=== PATIENT | female | born 1985 | race Caucasian/White ===

== ENCOUNTER 2017-02-17 15:12 | Observation (INO) | payer OTHER ==
--- NOTE | 2017-02-17 15:24 | EDPHY ---
HPI/HX/ROS/PE/MDM Narrative: CHIEF COMPLAINT: Shortness of breath, lightheadedness, nausea HISTORY OF PRESENT ILLNESS: The patient is a 32-year-old female, brought in by EMS, presenting with lightheadedness and nausea that started while biking today. The patient started biking around 12 p.m. She stopped under some shade because she was tired after pedaling up a hill. Immediately after stopping she developed shortness of breath, nausea, and lightheadedness. Her shortness of breath felt similar to previous PE. A assistant auto center manager happened to drive by and helped her. She received 3/4 L of fluids and her symptoms improved. The patient is on Warfarin for Factor 5 Leiden, she forgot to take her 20mg dose this morning. She states she felt fine before the bike ride. She ate eggs and has been hydrating sufficiently. Vitals in the field BP: 106/68, Pulse: 80, BGL: 165. No fever, chills, chest pain, shortness of breath, palpitations, vomiting, diarrhea, urinary complaints, headache. REVIEW OF SYSTEMS: Aside from elements discussed in the HPI, a comprehensive 10-point review of systems was reviewed and is negative. PAST MEDICAL HISTORY: Factor 5 Leiden, PE, DVT PS: Cholecystectomy SOCIAL HISTORY: Single. Lives in [place]. VITAL SIGNS: Reviewed by me GENERAL: Well-developed, well-nourished, resting comfortably in no respiratory distress. HEENT: Atraumatic. Eyes: No icterus, no injection. Mouth: slightly dry mucous membranes. No erythema or lesions. Neck: supple with no adenopathy. LUNGS: Clear to auscultation bilaterally, no wheezes, rhonchi or rales. CARDIAC: Regular rate and rhythm, no rubs, murmurs or gallops. ABDOMEN: Soft, nontender, nondistended, bowel sounds normal. BACK: No CVA tenderness. EXTREMITIES: No trauma. No edema. Range of motion is normal throughout. Multiple sites of ecchymosis bilaterally. NEURO: Alert and oriented, grossly nonfocal. SKIN: Cold and clammy. PSYCHIATRIC: Normal mentation, no agitation. Portions of this note were transcribed by a hospital medical assistant. I personally performed a history, physical exam, medical decision making, and confirmed accuracy of information the transcribed note. ED Course: Patient presents brought in by EMS with heat exhaustion from biking today. Patient's symptoms have resolved. Plan to check electrolytes, troponin, and urinalysis. UA is negative. Lab work is otherwise unremarkable. PT/INR is not therapeutic, patient states she did not take her 20mg dose of Warfarin this morning. Creatinine is 1.1. Troponin is .032, plan to consult cardiology. 12-LEAD EKG: Please see the full report in [facility]. My interpretation: Normal sinus rhythm. 1622: I spoke to Dr. Jean, Cardiology, he recommends admission for serial troponins. 1625: I discussed findings with the patient, she agrees with plan for admission. 1640: I spoke to the hospitalist, Dr. Pinto, who will admit the patient. MDM: Differential diagnosis for the patient's symptom complex was considered including but not limited to heat exhaustion, electrolyte abnormalities, cardiac causes, dehydration, pulmonary emboli, pulmonary edema, and cardiac causes. - Data Points Laboratory Results: Laboratory Results 02/17/17 15:20 02/17/17 15:20 02/17/17 02/17/17 02/17/17 15:20 15:20 15:20 WBC RBC Hgb Hct MCV MCH MCHC RDW Plt Count MPV Neut % (Auto) Lymph % (Auto) [place] % (Auto) Eos % (Auto) Baso % (Auto) Nucleat RBC Rel Count Absolute Neuts (auto) Absolute Lymphs (auto) Absolute Monos (auto) Absolute Eos (auto) Absolute Basos (auto) Absolute Nucleated RBC Immature Gran % Immature Gran # PT INR Sodium 143 mEq/L mEq/L (134-144) Potassium 3.8 mEq/L mEq/L (3.5-5.2) Chloride 108 mEq/L mEq/L (97-110) Carbon Dioxide 18 mEq/l L mEq/l (22-31) Anion Gap 17 mEq/L H mEq/L (8-16) BUN 18 mg/dL mg/dL (7-23) Creatinine 1.1 mg/dL H mg/dL (0.6-1.0) Estimated GFR 57 Glucose 123 mg/dL H mg/dL (70-100) Calcium 10.8 mg/dL H mg/dL (8.5-10.4) Phosphorus 4.3 mg/dL mg/dL (2.5-4.5) Creatine Kinase 128 IU/L IU/L (0-156) Troponin I 0.032 ng/mL ng/mL (0-0.034) Lipase 84.0 IU/L IU/L (23-300) Beta HCG, Qual NEGATIVE Urine Color YELLOW Urine Appearance CLEAR Urine pH 7.0 (5.0-7.5) Ur Specific [place] 1.020 (1.002-1.030) Urine Protein NEGATIVE (NEGATIVE) Urine Ketones TRACE H (NEGATIVE) Urine Blood NEGATIVE (NEGATIVE) Urine Nitrate NEGATIVE (NEGATIVE) Urine Bilirubin NEGATIVE (NEGATIVE) Urine Urobilinogen NEGATIVE EU EU (0.2-1.0) Ur Leukocyte Esterase NEGATIVE (NEGATIVE) Urine RBC 1-3 /hpf /hpf (0-3) Urine WBC 1-3 /hpf /hpf (0-3) Ur Epithelial Cells TRACE /lpf /lpf (NONE-1+) Hyaline Casts 25-50 /lpf H /lpf (0-1) Urine Mucus 1+ /lpf /lpf (NONE-1+) Urine Glucose NEGATIVE (NEGATIVE) 02/17/17 02/17/17 15:20 15:20 WBC 7.48 10^3/uL 10^3/uL (3.80-9.50) RBC 4.92 10^6/uL 10^6/uL (4.18-5.33) Hgb 15.7 g/dL g/dL (12.6-16.3) Hct 45.8 % % (38.0-47.0) MCV 93.1 fL fL (81.5-99.8) MCH 31.9 pg pg (27.9-34.1) MCHC 34.3 g/dL g/dL (32.4-36.7) RDW 12.9 % % (11.5-15.2) Plt Count 316 10^3/uL 10^3/uL (150-400) MPV 10.3 fL fL (8.7-11.7) Neut % (Auto) 60.9 % % (39.3-74.2) Lymph % (Auto) 28.2 % % (15.0-45.0) [place] % (Auto) 7.0 % % (4.5-13.0) Eos % (Auto) 2.8 % % (0.6-7.6) Baso % (Auto) 0.8 % % (0.3-1.7) Nucleat RBC Rel Count 0.0 % % (0.0-0.2) Absolute Neuts (auto) 4.56 10^3/uL 10^3/uL (1.70-6.50) Absolute Lymphs (auto) 2.11 10^3/uL 10^3/uL (1.00-3.00) Absolute Monos (auto) 0.52 10^3/uL 10^3/uL (0.30-0.80) Absolute Eos (auto) 0.21 10^3/uL 10^3/uL (0.03-0.40) Absolute Basos (auto) 0.06 10^3/uL 10^3/uL (0.02-0.10) Absolute Nucleated RBC 0.00 10^3/uL 10^3/uL (0-0.01) Immature Gran % 0.3 % % (0.0-1.1) Immature Gran # 0.02 10^3/uL 10^3/uL (0.00-0.10) PT 13.5 SEC SEC (12.0-15.0) INR 1.04 (0.83-1.16) Sodium Potassium Chloride Carbon Dioxide Anion Gap BUN Creatinine Estimated GFR Glucose Calcium Phosphorus Creatine Kinase Troponin I Lipase Beta HCG, Qual Urine Color Urine Appearance Urine pH Ur Specific [place] Urine Protein Urine Ketones Urine Blood Urine Nitrate Urine Bilirubin Urine Urobilinogen Ur Leukocyte Esterase Urine RBC Urine WBC Ur Epithelial Cells Hyaline Casts Urine Mucus Urine Glucose General Initial Vital Signs: Initial Vital Signs Temperature (C) 36.9 C 02/17/17 15:26 Heart Rate 79 02/17/17 15:26 Respiratory Rate 20 02/17/17 15:26 Blood Pressure 135/93 H 02/17/17 15:26 O2 Sat (%) 96 02/17/17 15:26 O2 Delivery Mode Room Air Allergies/Adverse Reactions: hydrocodone [From Vicodin] Allergy (Verified 02/17/17 18:05) oxycodone [From Percocet] Allergy (Verified 02/17/17 18:05) Home Medications: Medication Instructions Recorded Albuterol Sulfate [Ventolin Hfa] 1 - 2 gm IH Q4 PRN 02/17/17 Aspirin [Aspirin 81mg (*)] 81 mg PO DAILY 02/17/17 Beclomethasone Qvar 40 [Qvar 40 1 puffs IH DAILY 02/17/17 (*)] Herbals/Supplements -Info Only 1 ea PO DAILY 02/17/17 Metoclopramide [Reglan 10 mg tab 10 mg PO TID PRN 02/17/17 (*)] Multivitamins [Multivitamin (*)] 1 each PO DAILY 02/17/17 [place]-3 Fatty Acids [Fish Oil 1000 1,000 mg PO DAILY 02/17/17 mg (*)] Warfarin Sodium [Jantoven] 20 mg PO DAILY 02/17/17 Wellbutrin Dose Unknown 02/17/17 Departure - Departure Disposition: [facility] Acute Clinical Impression: Shortness of breath, Lightheadedness, Nausea, Dehydration Condition: Fair Report Scribed for: Christa Subramanian Report Scribed by: Tammi Amor Date of Report: 02/17/17 Time of Report: 15:24
[2017-02-17 15:50] LABS: % IMMATURE GRANULYOCYTES 0.3 % (0.0-1.1); ABSOLUTE IMMATURE GRANULOCYTES 0.02 10^3/uL (0.00-0.10); ADD DIFF? NO; ADD MORPH? NO; ADD SCAN? NO; ATYPICAL LYMPHOCYTE FLAG 10 (0-99); FRAGMENT RBC FLAG 0 (0-99); HEMATOCRIT 45.8 % (38.0-47.0); HEMOGLOBIN 15.7 g/dL (12.6-16.3); LEFT SHIFT FLG 0 (0-99); LIPEMIA HEMOLYSIS FLAG 90 (0-99); MEAN CELL HEMOGLOBIN 31.9 pg (27.9-34.1); MEAN CELL HEMOGLOBIN CONCENTR. 34.3 g/dL (32.4-36.7); MEAN CELL VOLUME 93.1 fL (81.5-99.8); MEAN PLATELET VOLUME 10.3 fL (8.7-11.7); PLATELET CLUMPS FLAG 10 (0-99); PLATELET COUNT 316 10^3/uL (150-400); RED BLOOD CELL COUNT 4.92 10^6/uL (4.18-5.33); RED CELL DISTRIBUTION WIDTH 12.9 % (11.5-15.2)
[2017-02-17 15:51] LABS: COLOR YELLOW; LEUKOCYTE ESTERASE,URINE NEGATIVE (NEGATIVE); NITRITE,URINE NEGATIVE (NEGATIVE)
[2017-02-17 15:56] LABS: HYALINE CASTS 25-50 /lpf (0-1); MUCUS 1+ /lpf (NONE-1+)
--- NOTE | 2017-02-17 15:58 | CPEKG ---
Heart Rate: 65 RR Interval: 923 P-R Interval: 168 QRSD Interval: 86 QT Interval: 396 QTC Interval: 412 P [place]: 29 QRS [place]: 55 T Wave [place]: 16 EKG Severity - NORMAL ECG - EKG Impression: SINUS RHYTHM Electronically Signed By: Christa Subramanian 17-Feb-2017 16:15:42
[2017-02-17 15:59] LABS: INR 1.04 (0.83-1.16); PROTIME(PATIENT) 13.5 SEC (12.0-15.0)
[2017-02-17] MEDS ORDERED: NS 1,000 ML IV ONE (16:00)
[2017-02-17 16:04] LABS: ANION GAP 17 mEq/L (8-16); CALCIUM 10.8 mg/dL (8.5-10.4); CARBON DIOXIDE 18 mEq/l (22-31); CHLORIDE 108 mEq/L (97-110); CREATININE 1.1 mg/dL (0.6-1.0); GLOMERULAR FILTRATION RATE 57; GLUCOSE 123 mg/dL (70-100); POTASSIUM 3.8 mEq/L (3.5-5.2); SODIUM 143 mEq/L (134-144)
[2017-02-17 16:15] LABS: TROPONIN I 0.032 ng/mL (0-0.034)
[2017-02-17] MEDS ORDERED: WARFARIN SODIUM 5 MG TAB PO ONE (16:45)
[2017-02-17] MEDS ORDERED: ACETAMINOPHEN 325 MG TAB PO PRN (17:13)
--- NOTE | 2017-02-17 17:48 | GHP ---
[f rep st] HISTORY AND PHYSICAL DATE OF ADMISSION: 02/17/2017 CHIEF COMPLAINT: Shortness of breath, lightheadedness and nausea. HISTORY OF PRESENT ILLNESS: This is a 32-year-old female with a history of factor V Leiden and pulm onary embolism in 2009 after being on control pills. Presented to the emergency department by EMS after she became ill while on a bike ride. 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 She was out for a 50-mile bike ride and was 33 miles i n riding up a hill at [facility] when she became very hot. She was able to crest the hill, but at the top she started breathing very fast and was unable to catch her breath. This was associated wit h some nausea and feeling faint. She did not pass out. She denied any chest pain. She began to fe el better once she was cooled by air conditioning on her way to the hospital. PAST MEDICAL HISTORY: 1. Bilateral pulmonary embolism in 2009 with diagnosis of factor V Leiden mutation. 2. C difficile. PAST SURGICAL HISTORY: 1. Cholecystectomy. 2. I and D of the hand for a cat bite abscess. 3. IVC filter placement and subsequent removal. 4. Bilateral bunionectomy. HOME MEDICATIONS: Reviewed. Refer to Dr Lal [facility] for details. ALLERGIES: Hydrocodone and oxycodone. Tylenol was listed as an allergy but this is incorrect. SOCIAL HISTORY: She denies any alcohol, tobacco, or illicit drug use. FAMILY HISTORY: She was adopted. REVIEW OF SYSTEMS: Comprehensive 10-point review of systems was done and is negative, except for as mentioned in the HPI. PHYSICAL EXAMINATION: VITAL SIGNS: Blood pressure 125/74, pulse 70, respiratory rate 20, O2 satura tion 97% on room air. Temperature afebrile. GENERAL: No acute distress. HEAD: Normocephalic, at raumatic. EYES: PERRLA. Sclerae anicteric. MOUTH: Moist mucous membranes. NECK: Supple. No l ymphadenopathy. CARDIOVASCULAR: S1, S2. No murmurs, rubs, clicks, gallops or JVD. No lower extre mity edema. PULMONARY: Lungs are clear. No wheezes, rales or rhonchi. ABDOMEN: Soft, nontender, nondistended. No guarding or rebound tenderness. Normoactive bowel sounds. EXTREMITIES: No club charu or cyanosis. NEURO: Cranial nerves 2-12 grossly intact. No focal motor or sensory deficits. SKIN: Clear. No rashes. DIAGNOSTICS: WBC 7.4, hemoglobin 15.7, hematocrit 45.8, platelets 316. Sodium 143, potassium 3.8, chloride 108, BUN 18, creatinine 1.1, glucose 123. Troponin was negative at 0.034. Calcium was nyasia vated at 10.8. EKG, which I visualized and personally interpreted, shows sinus rhythm, rate 65 beat s per minute, with no acute ischemic changes. ASSESSMENT AND PLAN: This is a 32-year-old female with history of factor V Leiden and pulmonary emb olism with subtherapeutic INR, presenting with: 1. Presyncope in the setting of exertion on a hot, mikael day. Plan: Discussed the case with Dr. Philly turcios in the emergency department, who presented the case to Dr. Jean, who recommended that we c ycle her troponins. We will repeat a troponin at 8:30 tonight. If her second troponin is negative, we will plan on sending her home. 2. Suspected dehydration with BUN to creatinine ratio of 18:1 and mild hypercalcemia. Plan: The p atient has received 1 L of saline while in the emergency department. Will continue to recommend ora l hydration. 3. History of pulmonary embolism with subtherapeutic INR. Plan: The patient currently does not gomez ve any signs or symptoms of PE, without chest pain, tachycardia or hypoxemia. The patient is planni ng to resume her Coumadin today. Her last dose was yesterday. She will need to have further routin e outpatient monitoring of her INR. /[id number]/MODL
[2017-02-17] MEDS: ONDANSETRON 4 MG/2 ML VIAL IVP PRN (18:34)
[2017-02-17 19:18] LABS: TROPONIN I 0.071 ng/mL (0-0.034)
[2017-02-17] MEDS ORDERED: METOCLOPRAMIDE 10 MG TAB PO PRN (19:46)
[2017-02-17] MEDS ORDERED: ALBUTEROL INH PREPACK MDI TAKEHOME PRN (19:46)
[2017-02-17] MEDS ORDERED: ALBUTEROL 60 PUFFS/8 GM MDI IH PRN (20:06)
[2017-02-17] MEDS: 1/2 NS 1,000 ML IV SCH (22:15)
[2017-02-18] MEDS ORDERED: Herbals/Supplements -Info Only PO SCH (09:00)
[2017-02-18] MEDS ORDERED: ASPIRIN 81 MG CHEWABLE TAB PO SCH (09:00)
[2017-02-18] MEDS ORDERED: MULTIVITAMINS 1 EACH TAB PO SCH (09:00)
[2017-02-18] MEDS ORDERED: OMEGA-3 FATTY ACIDS 1,000 MG CAP PO SCH (09:00)
[2017-02-18] MEDS ORDERED: WARFARIN SODIUM PO SCH (09:00)
[2017-02-18] MEDS ORDERED: BECLOMETHASONE QVAR 40 MDI IH SCH (09:00)
--- NOTE | 2017-02-18 09:09 | HOSPPROG ---
Hospitalist Progress Note Assessment/Plan: 32 yo f w h/o pe admitted w exertional breathlessness, mild volume depletion, indet trop CV: suspect trop elevation 2/2 vigorous exertion but given plans for ironman will do stress test h/o PE: check d dimer ct pe if + as INR very subtherapeutic MAGUE: mild repeat labs now AGMA: likely ketosis repeat values pending dispo: home if neg stress and CT PE Subjective: tele: no events (interp bby me). ekg w inferior twi (interp by me) Objective: Vital Signs Temp Pulse Resp BP Pulse Ox 36.6 C 50 L 18 109/64 92 02/18/17 07:43 02/18/17 07:43 02/18/17 07:43 02/18/17 07:43 02/18/17 07:43 02/17/17 02/18/17 02/19/17 05:59 05:59 05:59 Intake Total 2300 Balance 2300 PT 13.5 SEC (12.0-15.0) 02/17/17 15:20 INR 1.04 (0.83-1.16) 02/17/17 15:20 - Physical Exam Constitutional: no apparent distress, appears nourished Eyes: PERRL, anicteric sclera Ears, Nose, Mouth, Throat: moist mucous membranes, hearing normal Cardiovascular: regular rate and rhythym, no murmur, rub, or gallop, No systolic murmur, No tachycardia Respiratory: no respiratory distress, no rales or rhonchi Gastrointestinal: normoactive bowel sounds, soft, non-tender abdomen Genitourinary: no bladder fullness, No crespo in urethra Skin: warm, normal color Musculoskeletal: full muscle strength, no muscle tenderness Neurologic: AAOx3, sensation intact bilaterally ICD10 Worksheet Patient Problems: Problems Problem Status Onset Dehydration Acute Lightheadedness Acute Nausea Acute Shortness of breath Acute
[2017-02-18] MEDS: 1/2 NS 1,000 ML IV SCH (09:15)
[2017-02-18 09:22] LABS: ANION GAP 6 mEq/L (8-16); CALCIUM 8.7 mg/dL (8.5-10.4); CARBON DIOXIDE 22 mEq/l (22-31); CHLORIDE 111 mEq/L (97-110); CREATININE 0.7 mg/dL (0.6-1.0); GLOMERULAR FILTRATION RATE > 60; GLUCOSE 85 mg/dL (70-100); POTASSIUM 4.1 mEq/L (3.5-5.2); SODIUM 139 mEq/L (134-144)
[2017-02-18] MEDS ORDERED: buPROPion XL 150 MG TAB PO SCH (11:15)
[2017-02-18 15:34] VITALS: BP 106/68; PULSE 58; RESP 18; TEMP 98; O2SAT 93
[2017-02-18] MEDS ORDERED: WARFARIN SODIUM 5 MG TAB PO SCH (16:00)
[2017-02-18] MEDS: ONDANSETRON 4 MG/2 ML VIAL IVP PRN (17:29)
--- NOTE | 2017-02-18 21:50 | GDS ---
[f rep st] DISCHARGE SUMMARY This patient is a 32-year-old female with a history of pulmonary embolism, who is training for a russell f-iron man. She was doing a 50-mile road ride yesterday, which is long for her on the course. She was riding up a hill on one of the [facility]. She felt fatigued, dehydrated, and some hang st symptoms, as well as exertional breathlessness. She was admitted. She had a troponin of 0.032 t hat went up to 0.071, and then down to less than 0.012. She had a subsequent stress test that was n egative. She had an EKG without ischemic changes, no events on telemetry, and a negative D-dimer. Notably, her INR was 1. She says she had forgotten to take her Coumadin, although it sounds like demetria mercedes had forgotten to take it for a number of days in a row. Her event was not recent, so she does not require bridging. She was discharged home on an unchanged medication regimen. /[id number]/MODL
--- NOTE | 2017-02-19 12:39 | CPR ---
[f rep st] NONINVASIVE CARDIAC PROCEDURE REPORT DATE OF PROCEDURE: 02/18/2017 PROCEDURE PERFORMED: Nuclear exercise stress test. REASON FOR TEST: 1. Dehydration with heavy exercise. 2. Shortness of breath. Resting EKG shows a sinus bradycardia with a rate of 53. No ischemic changes noted. Resting blood pr essure pre-exercise 106/72, heart rate 55. No ischemic EKG changes. STRESS PORTION: She was exercised according to the Davis protocol for a total of 10 minutes. Peak M ET level 10.7. Peak heart rate 168. Peak blood pressure 170/72. There were no significant EKG change s with exercise. She remained asymptomatic. RECOVERY: She spontaneously recovered with her blood pressure returning to 124/78, heart rate 78. N o EKG changes. She remained asymptomatic. At this time, she is stable for nuclear imaging. /[id number]/MODL
== END 2017-02-18 18:35 | disposition home or self-care (01) ==
LOC: EDUNIT# → F2W 18:00
PROVIDERS: ADMIT Family Medicine; ATTEND Internal Medicine
DX: R06.09 Other forms of dyspnea (principal); E86.0 Dehydration; R42 Dizziness and giddiness; D68.2 Hereditary deficiency of other clotting factors; Z86.711 Personal history of pulmonary embolism; Z79.01 Long term (current) use of anticoagulants
CPT/HCPCS: 78452; 93005; 93017; 96360; 99285; A9500; G0378; J2405